=== PATIENT | female | born 1945 | race Caucasian/White ===

== ENCOUNTER → 2017-07-06 08:00 | Outpatient (CLI) | payer OTHER ==
[~2017-07-06] VITALS: Ht 157.5 cm; Wt 31.8 kg
[~2017-07-06 08:00] MED LIST: FORTAMET1000 MG PO; GLUCOTROL10 MG PO; HYZAAR 100-251 EACH PO
== END | disposition home or self-care (01) ==
LOC: LAB 08:00 → SURH 07-13 07:00 → EDSTATUS 07-13 07:45 → EDBD 07-13 07:45
DX: D12.0 Benign neoplasm of cecum (principal); R19.4 Change in bowel habit; D37.4 Neoplasm of uncertain behavior of colon; Z01.810 Encounter for preprocedural cardiovascular examination